=== PATIENT | female | born 1940 | race Caucasian/White ===

== ENCOUNTER 2022-09-24 16:20 | Emergency (ER) | payer OTHER ==
[2022-09-24 18:00] LABS: #Eosinphils 0.2 10x3/uL (0.0-0.5); #Monocytes 0.6 10x3/uL (0.0-1.1); #Neutrophils 3.9 10x3/uL (1.5-8.4); %Basophils 0.7 % (0.0-2.0); %Eosinophils 3.5 % (0.0-6.0); %Lymphocytes 21.2 % (18.0-47.0); %Monocytes 9.8 % (0.0-10.0); %Neutrophils 64.6 % (40.0-75.0); Hemoglobin 9.2 g/dL (12.0-15.5); Mean Corpuscular HGB CONC 31.6 g/dL (32.0-36.0); Mean Corpuscular Hemoglobin 29.4 pg (27.0-33.0); Mean Platelet Volume 10.4 fl (7.4-10.4); Platelet Count 201 10x3/uL (150-450); Red Blood Cell (RBC) Count 3.13 10x6/uL (3.90-5.03)
[2022-09-24 18:14] LABS: ALT (SGPT) 16 U/L (8-55); AST (SGOT) 24 U/L (5-34); Alkaline Phosphatase 96 U/L (40-110); Anion Gap 15 mmol/L (10-20); BUN (Urea Nitrogen) 42 mg/dL (9.8-20.1); Bilirubin, Total 0.9 mg/dL (0.2-1.2); CK (CPK) 170 U/L (29-168); Calc. Creatinine Clearance 0 mL/min (70-130); Calcium 9.7 mg/dL (7.8-10.44); Carbon Dioxide 22 mmol/L (23-31); Chloride 105 mmol/L (98-107); Estimated GFR 20; Globulin 3.2 g/dL (2.4-3.5); Glucose 112 mg/dL (83-110); Lipase 72 U/L (8-78); Potassium 4.9 mmol/L (3.5-5.1); Protein, Total 7.2 g/dL (5.8-8.1); Sodium 137 mmol/L (136-145)
[2022-09-24] MEDS ORDERED: Piperacillin/Tazobactam 3.375 GM VIAL ONE (18:56)
[2022-09-24] MEDS ORDERED: Vancomycin 1 GM VIAL ONE (18:56)
== END 2022-09-24 23:54 | disposition home or self-care (01) ==
LOC: CSHERS 16:20
DX: R14.0 Abdominal distension (gaseous) (principal); N17.9 Acute kidney failure, unspecified; E11.22 Type 2 diabetes mellitus with diabetic chronic kidney disease; E78.5 Hyperlipidemia, unspecified; K21.9 Gastro-esophageal reflux disease without esophagitis; Z79.899 Other long term (current) drug therapy
CPT/HCPCS: 71045; 80053; 82550; 83605; 83690; 83880; 84484; 85025; 87040; 93005; 96365; 96366; 96368; J2543; J3370